=== PATIENT | male | born 1955 | race American Indian/Alaskan Native ===

== ENCOUNTER 2017-05-16 08:17 | Day surgery (SDC) | payer OTHER ==
[2017-05-16] MEDS ORDERED: ECOTRIN PO NR (08:46)
[2017-05-16 08:58] LABS: Basophils % (Auto) 0.7 % (0.0-1.8); Eosinophils # (Auto) 0.3 K/mm3 (0.0-0.4); Eosinophils % (Auto) 6.7 % (0.0-4.3); Hemoglobin 13.6 gm/dl (11.8-15.2); Lymphocytes # (Auto) 1.6 K/mm3 (1.2-5.4); Mean Corpuscular HGB Conc 34 % (32-34); Mean Corpuscular Hemoglobin 32 pg (28-32); Mean Corpuscular Volume 93 fl (84-94); Monocytes # (Auto) 0.4 K/mm3 (0.0-0.8); Platelet Count 200 K/mm3 (140-440); Red Blood Count 4.31 M/mm3 (3.65-5.03); Red Cell Distribution Width 14.3 % (13.2-15.2)
[2017-05-16] MEDS ORDERED: NACL 0.9% 500 ML 500 ML IV SCH (09:00)
[2017-05-16 09:11] LABS: BUN/Creatinine Ratio 22; Blood Urea Nitrogen 24 mg/dL (9-20); Calcium 9.3 mg/dL (8.4-10.2); Hemolysis Index 5
[2017-05-16 09:15] LABS: INR 0.87 (0.87-1.13)
[2017-05-16] MEDS ORDERED: HEPARIN/NS 5000 UNIT/500ML(CATH LAB) 1,000 ML IR ONE (09:35)
[2017-05-16] MEDS ORDERED: CALAN ONE (09:35)
[2017-05-16] MEDS ORDERED: HEPARIN 10,000 UNITS/10 ML ONE (09:35)
[2017-05-16] MEDS ORDERED: NITROGLYCERIN SYRINGE 3 ML ONE (09:35)
[2017-05-16] MEDS ORDERED: XYLOCAINE 2% INFILTRATI ONE (09:35)
[2017-05-16] MEDS ORDERED: VERSED ONE (09:36)
[2017-05-16] MEDS ORDERED: SUBLIMAZE ONE (09:36)
--- NOTE | 2017-05-16 11:10 | Cardiac Catherization Report ---
CARDIAC CATHETERIZATION REFERRING PHYSICIAN: Dr. Rodriguez. INDICATION FOR PROCEDURE: The patient is a very pleasant 62-year-old gentleman who has a history of prediabetes, chest pain, and abnormal stress test referred for left heart catheterization. Risks, benefits, and potential alternatives were explained in length prior to obtaining informed consent. PROCEDURE IN DETAIL: The patient was brought to the catheterization lab in postoperative state and prepped and draped in sterile fashion. Orlando's test in right hand was normal. A 2 mL of 2% lidocaine was used to anesthetize the right wrist. A standard 6-Trinidadian hydrophilic sheath was used to cannulate the right radial artery via modified Seldinger technique. All exchanges performed to exchange a J-tip guidewire. JL3.5 catheter was used to engage the left main. No dampening or ventricularization. Cineangiography performed in all projections. JR4 catheter was used to cross the aortic valve under fluoroscopic guidance. Left ventriculography performed in 30 DESAI and 30 MICHELLE projections via hand injections. Catheter was flushed. Manual pullback performed with continuous pressure monitoring. Catheter was used to engage the right coronary. No dampening or ventricularization. Cineangiography performed in all projections. Next, catheter was removed from the body of wire, sheath removed. Manual pressure was used to achieve hemostasis. No complications were noted. I directly supervised the administration of moderate sedation with fentanyl and Versed, started at 10:09 and ended at 10:25. DATA: Aortic pressure is 110/70, LV pressure is 110, LVEP of 20 mmHg. Left ventriculography revealed normal systolic performance with estimated ejection fraction of 55% -60%. No evidence of aortic stenosis The patient remained in normal sinus rhythm and sinus bradycardia throughout. CORONARY ANATOMY: This is a right dominant system. Left main is a long vessel with no significant disease, bifurcates left anterior descending and left circumflex. Left circumflex is a moderate sized vessel, courses AV groove. No significant disease. LAD is a moderate sized vessel, courses anterior interventricular groove, wraps around the apex, no significant disease. Right coronary is a moderate sized vessel, courses AV groove, distally bifurcates in the posterior descending and posterolateral branches. No discrete stenosis. CONCLUSIONS: 1. No angiographic evidence of significant epicardial coronary disease in this right dominant system. 2. Normal left ventricular systolic performance with high normal LVEP and estimated ejection fraction of 55%-60%. 3. No evidence of aortic stenosis. Continue aggressive risk factor modification, standard groin care. Follow up with Dr. Rodriguez in the office. JOB# [id number] SBM/NTS
[2017-05-16 12:38] VITALS: BP 114/68
--- NOTE | 2017-05-16 13:13 | Short Stay Summary ---
Short Stay Documentation Date of service: 05/16/17 - History H&P: obtained from office - Allergies and Medications Current Medications: Allergies No Known Allergies Allergy (Verified 05/16/17 08:46) Home Medications Medication Instructions Recorded Confirmed Last Taken Type Atenolol [Tenormin] 25 mg PO DAILY 05/16/17 05/16/17 05/16/17 07:00 History 25mg Active Medications Sodium Chloride (Nacl 0.9% 500 Ml) 500 mls @ 50 mls/hr IV DIRECT ESTER Stop: 05/16/17 18:59 Last Admin: 05/16/17 09:18 Dose: 50 mls/hr - Brief post op/procedure progress note Date of procedure: 05/16/17 Pre-op diagnosis: chest pain; abnormal stress test Post-op diagnosis: same Procedure: LHC - see dictated cath report Anesthesia: local Estimated blood loss: none Condition: stable - Disposition Condition at discharge: Stable Disposition: [id number] TO HOME OR SELFCARE - Discharge Diagnoses (1) Abnormal stress test Status: Chronic (2) Chest pain Status: Chronic (3) Normal coronary arteries Status: Chronic Short Stay Discharge Plan Activity: advance as tolerated Diet: regular Wound: open to air, keep clean and dry, per your surgeon's advice Follow up with: DEB VASQUES MD [Primary Care Provider] - 7 Days Forms: CardCath PCI D/C Instructions
== END 2017-05-16 13:30 | disposition home or self-care (01) ==
LOC: CATHLABREC 08:17
PROVIDERS: ATTEND Internal Medicine
DX: R07.9 Chest pain, unspecified (principal)
CPT/HCPCS: 36415; 80048; 85025; 85610; 85730; 93005; 93010; 93458; 93567; 99156; C1894; J1644; J2250; J3010; J7040; Q9967